=== PATIENT | female | born 1990 | race Hispanic/Latino ===

== ENCOUNTER 2020-04-29 09:20 | Observation (INO) | payer BC ==
[2020-04-25 12:39] LABS: BASOPHILS % (AUTO) 1.3 % (0.0-5.0); EOSINOPHILS % (AUTO) 7.3 % (0.0-8.0); HEMATOCRIT 48.1 % (36-48); LYMPHOCYTES % (AUTO) 38.2 % (21.0-51.0); MEAN CORPUSCULAR HEMOGLOBIN 29.8 pg (27.0-33.0); MEAN CORPUSCULAR HGB CONC 32.2 g/dL (32.0-36.0); MEAN CORPUSCULAR VOLUME 92.3 fL (79-99); MONOCYTES % (AUTO) 4.9 % (3.0-13.0); NEUTROPHILS % (AUTO) 48.1 % (40.0-77.0); PLATELET COUNT (AUTO) 385 K/uL (130-400); RED BLOOD CELL COUNT(AUTO) 5.21 MIL/uL (4.00-5.50); RED CELL DISTRIBUTION WIDTH 13.1 % (11.0-15.5); WHITE BLOOD COUNT (AUTO) 8.4 K/uL (4.8-10.8)
[2020-04-25 12:58] LABS: CREATININE 0.8 mg/dL (0.5-1.5); POTASSIUM 3.9 mmol/L (3.5-5.1)
[2020-04-26 09:30] VITALS: BP 119/78
[2020-04-29] VITALS (24 sets, daily range): BP systolic 107–148; BP diastolic 56–88
[~2020-04-29] VITALS: Ht 162.6 cm; Wt 93.4 kg
[2020-04-29] MEDS: CEFAZOLIN SODIUM 1 GM VIAL IVP SCH ×4 (06:00→21:27)
[~2020-04-29 09:20] MED LIST: ACET-2743 PO; CYCL10TA7 PO; IBUP-2077 PO; LISI1TAB32 PO
[2020-04-29] MEDS ORDERED: LACTATED RINGERS 1000ML 1,000 ML IV ONE (09:41)
[2020-04-29] MEDS ORDERED: [UNRECOGNIZED DRUG - OTHER] PO (10:27)
[2020-04-29] MEDS ORDERED: MIDAZOLAM HCL 1 MG/ML 2ML VIAL ONE (12:49)
[2020-04-29] MEDS ORDERED: ROCURONIUM 10MG/1ML SYR 10 MG/ML ML ONE (12:49)
[2020-04-29] MEDS ORDERED: PROPOFOL 10 MG/ML 20ML VIAL IV ONE (12:49)
[2020-04-29] MEDS ORDERED: FENTANYL CITRATE PF 50 MCG/1 ML 2ML VIAL ONE ×2 (12:49→13:31)
[2020-04-29] MEDS ORDERED: LIDOCAINE PF 2% 5ML ABBOJECT ONE (12:49)
[2020-04-29] MEDS ORDERED: NEOSTIGMINE 5MG/5ML SYR IV ONE (14:24)
[2020-04-29] MEDS ORDERED: GLYCOPYRROLATE 1 MG/5 ML SYRINGE ONE (14:24)
[2020-04-29] MEDS ORDERED: CALCIUM CARBONATE 500 MG TABLET PO PRN (14:30)
[2020-04-29] MEDS ORDERED: DiphenhydrAMINE HCL 50 MG/ML VIAL IVP PRN (14:30)
[2020-04-29] MEDS: SODIUM CHLORIDE 0.9% 1000ML 1,000 ML IV SCH ×2 (14:30→22:58)
[2020-04-29] MEDS ORDERED: TEMAZEPAM 15 MG CAPSULE PO PRN (14:30)
[2020-04-29] MEDS: ACETAMINOPHEN EXTRA STRENGTH 500 MG TABLET PO SCH ×2 (14:30→21:30)
[2020-04-29] MEDS ORDERED: POTASSIUM CHLORIDE 10% ELIXIR 20 MEQ/15 ML UDCUP PO PRN (14:30)
[2020-04-29] MEDS ORDERED: POTASSIUM CHLORIDE 20MEQ/100ML 100 ML IV PRN (14:30)
[2020-04-29] MEDS ORDERED: POTASSIUM CHLORIDE 20 MEQ ERTAB PO PRN (14:30)
[2020-04-29] MEDS ORDERED: DIPHENHYDRAMINE HCL 25 MG CAPSULE PO PRN (14:30)
[2020-04-29] MEDS ORDERED: PROMETHAZINE HCL 25 MG/ML 1ML AMPULE IM PRN (14:30)
[2020-04-29] MEDS ORDERED: LIDOCAINE HCL-MPF 1% 2ML VIAL IV PRN (14:30)
[2020-04-29] MEDS ORDERED: OXYCODONE HCL 5 MG TAB PO PRN ×2 (14:30)
[2020-04-29] MEDS ORDERED: TRAMADOL HCL 50 MG TABLET PO PRN (14:30)
[2020-04-29] MEDS ORDERED: ONDANSETRON HCL 4 MG/2 ML VIAL ONE ×2 (14:47→15:11)
[2020-04-29] MEDS ORDERED: METOCLOPRAMIDE 10 MG/2 ML VIAL ONE (14:58)
[2020-04-29] MEDS ORDERED: SCOPOLAMINE HYDROBROMIDE 1 EACH ADH..PATCH TD ONE (15:38)
[2020-04-29] MEDS: KETOROLAC TROMETHAMINE 30MG/ML IV PRN (15:43)
[2020-04-29] MEDS ORDERED: NORETHINDRONE 0.35 MG PO SCH (21:00)
[2020-04-29] MEDS ORDERED: [UNRECOGNIZED DRUG - OTHER] PO SCH (21:00)
[2020-04-29] MEDS ORDERED: NON-FORMULARY MEDICATION 1 EACH (Lisinopril/Hydrochlorothiazide (Lisinopril-Hctz 10-12.5 m PO SCH (21:00)
[2020-04-29] MEDS: PREGABALIN 25 MG CAP PO SCH (21:26)
[2020-04-29] MEDS: CELECOXIB 200 MG CAP PO SCH (21:26)
[2020-04-29] MEDS: FAMOTIDINE 20MG TAB 20 MG TAB PO SCH (21:26)
[2020-04-29] MEDS: ENOXAPARIN SODIUM 40 MG/0.4 ML SYRINGE SQ SCH (21:27)
[2020-04-30 03:45] VITALS: BP 117/62
[2020-04-30 03:50] LABS: HEMATOCRIT 35.2 % (36-48); MEAN CORPUSCULAR HEMOGLOBIN 30.1 pg (27.0-33.0); MEAN CORPUSCULAR VOLUME 91.2 fL (79-99); RED BLOOD CELL COUNT(AUTO) 3.86 MIL/uL (4.00-5.50); RED CELL DISTRIBUTION WIDTH 13.2 % (11.0-15.5); WHITE BLOOD COUNT (AUTO) 14.8 K/uL (4.8-10.8)
[2020-04-30 04:01] LABS: CREATININE 0.7 mg/dL (0.5-1.5); POTASSIUM 3.5 mmol/L (3.5-5.1)
[2020-04-30] MEDS: ACETAMINOPHEN EXTRA STRENGTH 500 MG TABLET PO SCH (05:53)
[2020-04-30] MEDS: KETOROLAC TROMETHAMINE 30MG/ML IV PRN (06:49)
[2020-04-30] MEDS ORDERED: AEC81 PO (08:22)
[2020-04-30] MEDS ORDERED: HYDR-4457 PO (08:22)
[2020-04-30] MEDS: FAMOTIDINE 20MG TAB 20 MG TAB PO SCH (08:26)
[2020-04-30] MEDS: PREGABALIN 25 MG CAP PO SCH (08:27)
[2020-04-30] MEDS: CELECOXIB 200 MG CAP PO SCH (08:27)
[2020-04-30] MEDS: ENOXAPARIN SODIUM 40 MG/0.4 ML SYRINGE SQ SCH (08:29)
[2020-04-30] MEDS ORDERED: LISINOPRIL 10 MG TABLET PO SCH (09:00)
[2020-04-30] MEDS ORDERED: POLYETHYLENE GLYCOL 3350 17 GM POWD.PACK PO SCH (09:00)
[2020-04-30] MEDS ORDERED: HYDROCHLOROTHIAZIDE 25 MG TABLET PO SCH (09:00)
[2020-04-30 09:29] VITALS: BP 117/72
[2020-04-30] MEDS: SODIUM CHLORIDE 0.9% 1000ML 1,000 ML IV SCH (10:30)
[2020-04-30 11:34] VITALS: BP 114/77
[2020-04-30] MEDS ORDERED: PSYLLIUM SEED 1 EACH PACKET PO SCH (12:00)
== END 2020-04-30 11:44 | disposition home or self-care (01) ==
LOC: DAH 09:20 → DAHIP 09:21 → EDBD 16:00 → 3AH 16:45
PROVIDERS: ADMIT Orthopaedic Surgery; ATTEND Orthopaedic Surgery
DX: S86.021A Laceration of right Achilles tendon, initial encounter (principal); Z20.828 Contact with and (suspected) exposure to other viral communicable diseases; X58.XXXA Exposure to other specified factors, initial encounter; Y93.73 Activity, racquet and hand sports; Y92.89 Other specified places as the place of occurrence of the external cause; Y99.8 Other external cause status
CPT/HCPCS: 27650; 36415 ×2; 80048 ×2; 84703; 85025; 85027; 96361; 96372 ×2; 96374; 96375; 96376; 97039; 97116; 97161; A4649 ×2; A4930 ×2; A6223; C9803; G0378 ×21; G8978; G8979; G8980; G8981; G8982; G8983; J0690 ×2; J1650 ×2; J1885 ×2; J2001; J2250; J2405 ×2; J2704; J2710; J2765; J3010 ×2; J3490; J7030; J7120; Q4051; U0003

== ENCOUNTER → 2022-10-06 | Outpatient (CLI) | payer BC ==
[~2022-10-06] MED LIST changes: +AEC81 PO; -CYCL10TA7 PO; +HYDR-4457 PO; -LISI1TAB32 PO; +LISI1TAB49 PO; +[UNRECOGNIZED DRUG - OTHER] PO
== END | disposition home or self-care (01) ==
LOC: RAH 10:50
PROVIDERS: ATTEND Specialist
DX: M25.461 Effusion, right knee (principal); M23.91 Unspecified internal derangement of right knee
CPT/HCPCS: 73721

== ENCOUNTER → 2023-10-19 | Outpatient (CLI) | payer BC, OTHER | END | disposition home or self-care (01) | LOC: RAH 10:49 | PROVIDERS: ATTEND Nurse Practitioner Family | DX: S83.272A Complex tear of lateral meniscus, current injury, left knee, initial encounter (principal); M25.562 Pain in left knee; X58.XXXA Exposure to other specified factors, initial encounter; Y93.89 Activity, other specified; Y92.89 Other specified places as the place of occurrence of the external cause; Y99.8 Other external cause status; M25.462 Effusion, left knee | CPT/HCPCS: 73721 ==